=== PATIENT | male | born 1980 | race African-American/Black ===

== ENCOUNTER 2018-05-07 02:36 | Emergency (ER) | payer MEDICAID, OTHER ==
[~2018-05-07] VITALS: Ht 182.9 cm; Wt 112.5 kg
[2018-05-07] MEDS ORDERED: LIDOCAINE 2% (LOCAL ANESTH.) PF 5ml SDV ONE (06:53)
[2018-05-07] MEDS ORDERED: TETANUS-DIPTH-ACEL PERTUSSIS 0.5ML SYRG IM ONE (07:30)
[2018-05-07 07:38] VITALS: BP 159/114
== END 2018-05-07 08:07 | disposition home or self-care (01) ==
LOC: ER 02:42
DX: S61.511A Laceration without foreign body of right wrist, initial encounter (principal); X99.1XXA Assault by knife, initial encounter; Y93.89 Activity, other specified; Y92.89 Other specified places as the place of occurrence of the external cause; Y99.8 Other external cause status
CPT/HCPCS: 12002; 73110; 90471; 90715